=== PATIENT | male | born 1965 ===

== ENCOUNTER 2020-01-05 10:18 | Inpatient (IN) ==
[2020-01-05] MEDS ORDERED: DEXTROSE 50% 25 GM/50 ML VIAL IV PRN ×2 (13:31→15:26)
[2020-01-05] MEDS ORDERED: ONDANSETRON 4 MG/2 ML VIAL IV PRN (13:31)
[2020-01-05] MEDS ORDERED: GLUCAGON 1 MG VIAL IM PRN (13:31)
[2020-01-05] MEDS ORDERED: POTASSIUM CHLORIDE 20 MEQ TABLET PO PRN (13:37)
[2020-01-05] MEDS ORDERED: MAGNESIUM SULF RIDER 2 GM in PREMIX 1 EACH IV PRN (13:37)
[2020-01-05] MEDS ORDERED: MAGNESIUM SULF RIDER 4 GM in PREMIX 1 EACH IV PRN (13:37)
[2020-01-05] MEDS ORDERED: NITROGLYCERIN SL 0.4 MG TABLET SL PRN (13:40)
[2020-01-05 13:51] LABS: Basophils % 0.2 % (0.0-0.8); Hematocrit 43.4 VOL% (42.0-52.0); Hemoglobin 14.3 GM/DL (14.0-18.0); Immature Granulocytes % 0.4 %; Immature Granulocytes Absolute 0.02 #; Lymphocytes # 0.2 10*3/uL (1.4-4.0); Lymphocytes % 4.2 % (21.2-54.2); Mean Corpuscular HGB Conc 32.9 GM/DL (32-36); Mean Corpuscular Volume 95.4 FL (87-102); Mean Platelet Volume 9.4 FL (9.6-12.0); Monocytes % 1.6 % (1.7-12.7); Neutrophils % 93.6 % (38.7-73.9); Platelet Count 236 T/CUMM (130-400); Red Blood Count 4.55 MC/CUMM (3.8-5.5); Red Cell Distribution Width 16.2 % (9.3-17.3); White Blood Count 5.7 T/CUMM (4-12)
[2020-01-05 14:23] LABS: Bilirubin,Total 1.8 MG/DL (0.2-1.0); Calcium 8.8 MG/DL (8.5-10.1); Osmolality,Calculated 284.5 MOS/KG (273-304); Total Protein 6.6 G/DL (6.4-8.3)
[2020-01-05 14:29] LABS: Lymphocytes 4 % (20-55); Segmented Neutrophils 95 % (50-85); Total Cells Counted 100
[2020-01-05 14:30] LABS: Macrocytosis Slight
[2020-01-05 14:32] LABS: Anisocytosis 1+
[2020-01-05 14:33] LABS: Platelet Estimate Normal; Polychromasia Slight
[2020-01-05] MEDS: INSULIN LISPRO 100 UNIT/ML SUBCUT SCH ×2 (16:45→21:10)
[2020-01-05] MEDS: FUROSEMIDE 40 MG/4 ML VIAL IV SCH (16:56)
[2020-01-05 17:35] LABS: Bilirubin,Urine Negative (Negative); Blood, Urine Negative (Negative); Glucose,Urine (UA) Negative (Negative); Ketones,Urine Negative (Negative); Mucus,Urine Occasional /LPF (Occasional); Nitrite,Urine Negative (Negative); Protein,Urine 100 MG/DL; RBC,Urine 1 /HPF (0-4); Squamous Epithelial Cell,Urine Occasional /HPF (0-10); Urine Appearance CLEAR (Clear); Urine Color Amber (Yellow); Urine Specific Gravity 1.028 (1.001-1.035); WBC,Urine 1 /HPF (0-6)
[2020-01-05] MEDS: ENOXAPARIN 40 MG/0.4 ML SYRINGE SUBCUT SCH (21:10)
[2020-01-06 05:46] LABS: Basophils % 0.2 % (0.0-0.8); Hematocrit 44.4 VOL% (42.0-52.0); Hemoglobin 14.4 GM/DL (14.0-18.0); Immature Granulocytes % 0.3 %; Immature Granulocytes Absolute 0.03 #; Lymphocytes # 0.7 10*3/uL (1.4-4.0); Lymphocytes % 7.3 % (21.2-54.2); Mean Corpuscular HGB Conc 32.4 GM/DL (32-36); Mean Corpuscular Volume 94.9 FL (87-102); Mean Platelet Volume 10.1 FL (9.6-12.0); Monocytes % 3.9 % (1.7-12.7); Neutrophils % 88.3 % (38.7-73.9); Platelet Count 242 T/CUMM (130-400); Red Blood Count 4.68 MC/CUMM (3.8-5.5); Red Cell Distribution Width 15.9 % (9.3-17.3); White Blood Count 9.6 T/CUMM (4-12)
[2020-01-06 06:13] LABS: Albumin 2.9 G/DL (3.4-5.0); Bilirubin,Total 1.3 MG/DL (0.2-1.0); Calcium 8.9 MG/DL (8.5-10.1); Osmolality,Calculated 285.3 MOS/KG (273-304); Risk Ratio 4.25; Thyroid Stimulating Hormone 4.01 uIU/ml (0.358-3.74); Total Protein 6.2 G/DL (6.4-8.3); VLDL CHOLESTEROL 12.8 MG/DL
[2020-01-06] MEDS: INSULIN LISPRO 100 UNIT/ML SUBCUT SCH ×4 (08:04→20:09)
[2020-01-06] MEDS: FUROSEMIDE 40 MG/4 ML VIAL IV SCH ×2 (08:53→16:33)
[2020-01-06] MEDS: PANTOPRAZOLE 40 MG TABLET PO SCH (08:53)
[2020-01-06] MEDS ORDERED: VALSARTAN 80 MG TABLET PO SCH (09:00)
[2020-01-06 09:10] LABS: Free T4 (Free Thyroxine) 0.96 NG/DL (0.76-1.46)
[2020-01-06] MEDS ORDERED: diphenhydrAMINE CAP 25 MG CAPSULE PO ONE (10:35)
[2020-01-06] MEDS ORDERED: POTASSIUM CHLORIDE RIDER 10 MEQ in PREMIX 1 EACH IV PRN (10:35)
[2020-01-06] MEDS ORDERED: DIAZEPAM 5 MG TABLET PO ONE (10:35)
[2020-01-06] MEDS ORDERED: HEPARIN/NACL 0.9% 2 UNITS/ML 1,500 ML IV ONE (10:37)
[2020-01-06] MEDS ORDERED: LIDOCAINE 1% 20 ML VIAL ONE (10:37)
[2020-01-06] MEDS: ASPIRIN EC 81 MG TABLET PO SCH (10:54)
[2020-01-06] MEDS ORDERED: SODIUM CHLORIDE 0.45% 1,000 ML IV SCH (11:00)
[2020-01-06] MEDS ORDERED: MIDAZOLAM 2 MG/2 ML VIAL ONE (11:08)
[2020-01-06] MEDS ORDERED: fentaNYL 100 MCG/2 ML VIAL ONE (11:08)
[2020-01-06] MEDS: ENOXAPARIN 40 MG/0.4 ML SYRINGE SUBCUT SCH (20:59)
[2020-01-07 05:18] LABS: Basophils # 0.1 10*3/uL (0.0-0.2); Basophils % 0.6 % (0.0-0.8); Eosinophils % 0.1 % (0.00-10.9); Immature Granulocytes % 0.4 %; Immature Granulocytes Absolute 0.03 #; Lymphocytes # 1.9 10*3/uL (1.4-4.0); Lymphocytes % 23.1 % (21.2-54.2); Mean Corpuscular HGB Conc 32.6 GM/DL (32-36); Mean Corpuscular Volume 95.2 FL (87-102); Mean Platelet Volume 9.5 FL (9.6-12.0); Monocytes % 6.3 % (1.7-12.7); Neutrophils % 69.5 % (38.7-73.9); Platelet Count 253 T/CUMM (130-400); Red Blood Count 4.83 MC/CUMM (3.8-5.5); Red Cell Distribution Width 16.1 % (9.3-17.3); White Blood Count 8.3 T/CUMM (4-12)
[2020-01-07 05:34] LABS: Calcium 9.1 MG/DL (8.5-10.1); Osmolality,Calculated 278.8 MOS/KG (273-304)
[2020-01-07 05:40] LABS: Albumin 2.9 G/DL (3.4-5.0); Bilirubin,Total 1.5 MG/DL (0.2-1.0); Calcium 9.2 MG/DL (8.5-10.1); Osmolality,Calculated 279.7 MOS/KG (273-304); Total Protein 6.2 G/DL (6.4-8.3)
[2020-01-07] MEDS: INSULIN LISPRO 100 UNIT/ML SUBCUT SCH ×4 (08:30→20:50)
[2020-01-07] MEDS: OLMESARTAN 5 MG TABLET PO SCH (09:03)
[2020-01-07] MEDS: FUROSEMIDE 40 MG/4 ML VIAL IV SCH ×2 (09:03→15:37)
[2020-01-07] MEDS: ASPIRIN EC 81 MG TABLET PO SCH (09:03)
[2020-01-07] MEDS: PANTOPRAZOLE 40 MG TABLET PO SCH (09:04)
[2020-01-07] MEDS ORDERED: DEXTROSE 50% 25 GM/50 ML VIAL IV PRN (09:23)
[2020-01-07] MEDS ORDERED: GLUCAGON 1 MG VIAL IM PRN (09:23)
[2020-01-07] MEDS ORDERED: SODIUM CHLORIDE 0.9% 1,000 ML IV SCH ×2 (09:30→12:30)
[2020-01-07 14:18] LABS: ABG Base Excess 4.2 MMOL/L (-2.5-2.5); ABG HCO3 28.2 MMOL/L (20-26); ABG Oxygen Saturation 98.7 % (95-100); ABG PCO2 37.2 MM HG (35-48); ABG TCO2 23.5 MMOL/L (23-27)
[2020-01-07] MEDS ORDERED: CHLORHEXIDINE 4% SOLN 118 ML BOTTLE TOP SCH (15:00)
[2020-01-07] MEDS: CHLORHEXIDINE 4% SOLN 118 ML BOTTLE TOP SCH ×2 (15:37→20:50)
[2020-01-07] MEDS: CHLORHEXIDINE 0.12% ORAL RINSE 60 ML BOTTLE SWISH/SPIT SCH (20:50)
[2020-01-07] MEDS ORDERED: CHLORHEXIDINE 0.12% ORAL RINSE 60 ML BOTTLE SWISH/SPIT SCH (21:00)
[2020-01-08] MEDS ORDERED: CEFUROXIME INJ 1,500 MG in SYRINGE 1 EACH IV ONE (04:00)
[2020-01-08] MEDS ORDERED: VANCOMYCIN 1,000 MG VIAL ONE (04:21)
[2020-01-08 05:43] LABS: Basophils % 0.6 % (0.0-0.8); Eosinophils # 0.1 10*3/uL (0.0-0.87); Eosinophils % 0.8 % (0.00-10.9); Hematocrit 45.6 VOL% (42.0-52.0); Hemoglobin 14.9 GM/DL (14.0-18.0); Immature Granulocytes % 0.4 %; Immature Granulocytes Absolute 0.03 #; Lymphocytes # 1.3 10*3/uL (1.4-4.0); Lymphocytes % 18.3 % (21.2-54.2); Mean Corpuscular HGB Conc 32.7 GM/DL (32-36); Mean Corpuscular Volume 95.6 FL (87-102); Mean Platelet Volume 9.7 FL (9.6-12.0); Neutrophils % 73.9 % (38.7-73.9); Platelet Count 258 T/CUMM (130-400); Red Blood Count 4.77 MC/CUMM (3.8-5.5); Red Cell Distribution Width 15.9 % (9.3-17.3); White Blood Count 7.1 T/CUMM (4-12)
[2020-01-08] MEDS ORDERED: SUFentanil 250 MCG/5 ML AMP ONE (05:56)
[2020-01-08] MEDS ORDERED: MIDAZOLAM 10 MG/2 ML VIAL ONE (05:56)
[2020-01-08 06:13] LABS: Albumin 2.8 G/DL (3.4-5.0); Calcium 8.5 MG/DL (8.5-10.1); Osmolality,Calculated 284.3 MOS/KG (273-304); Total Protein 6.2 G/DL (6.4-8.3)
[2020-01-08 07:39] LABS: ABG Base Excess -1.2 MMOL/L (-2.5-2.5); ABG HCO3 25.7 MMOL/L (20-26); ABG Oxygen Saturation 99.3 % (95-100); ABG PCO2 51.4 MM HG (35-48); ABG PH 7.317 (7.35-7.45); ABG PO2 247.9 MM HG (80-95); ABG TCO2 27.3 MMOL/L (23-27); Glucose Heart Surgery 112 MG/DL (74-106); Hemoglobin Heart Surgery 14.7 G/DL (14.0-18.0); Ionized Calcium Arterial 1.17 MMOL/L (1.21-1.46); PCO2 Patient Temp Arterial 51.4 MMHG; PH Patient Temp Arterial 7.317; PO2 Patient Temp Arterial 247.9 MM HG; Patient Temperature 37 CELCIUS; Potassium Heart/CVR 3.7 MMOL/L (3.5-5.1); Sodium Heart/CVR 138 MMOL/L (135-145)
[2020-01-08 07:58] LABS: Bilirubin,Urine Negative (Negative); Blood, Urine NEGATIVE (Negative); Glucose,Urine (UA) Negative (Negative); Ketones,Urine Negative (Negative); Mucus,Urine Occasional /LPF (Occasional); Nitrite,Urine Negative (Negative); Protein,Urine Negative; RBC,Urine 1 /HPF (0-4); Urine Appearance Clear (Clear); Urine Color Yellow (Yellow); WBC,Urine <1 /HPF (0-6)
[2020-01-08 08:27] LABS: Hematocrit Heart Surgery 31.4 PERCENT (42-52); Hemoglobin Heart Surgery 10.1 G/DL (14.0-18.0); PH Patient Temp Venous 7.451; PO2 Patient Temp Venous 39.4 MM HG; Potassium Heart/CVR 3.7 MMOL/L (3.5-5.1); VBG Base Excess 3.8 MEQ/L (0-4); VBG HCO3 27.4 MEQ/L (24-28); VBG Oxygen Saturation 76.7 %; VBG PCO2 44.1 MMHG (41-51); VBG PH 7.422; VBG PO2 45.3 MMHG (17-40)
[2020-01-08] MEDS ORDERED: NITROGLYCERIN DRIP 50 MG/250 ML BOTTLE IV ONE (08:32)
[2020-01-08] MEDS ORDERED: HEPARIN/NACL 0.9% 2 UNITS/ML 500 ML IV ONE (08:32)
[2020-01-08] MEDS ORDERED: PHENYLEPHRINE DRIP 20 MG/250 ML PREMIX IV ONE (08:32)
[2020-01-08 09:01] LABS: Hematocrit Heart Surgery 31.1 PERCENT (42-52); Hemoglobin Heart Surgery 10.1 G/DL (14.0-18.0); PCO2 Patient Temp Venous 33.5 MM HG; PH Patient Temp Venous 7.53; PO2 Patient Temp Venous 40.7 MM HG; Potassium Heart/CVR 3.6 MMOL/L (3.5-5.1); VBG Base Excess 5.5 MEQ/L (0-4); VBG HCO3 29.1 MEQ/L (24-28); VBG Oxygen Saturation 84.4 %; VBG PCO2 38.8 MMHG (41-51); VBG PH 7.485
[2020-01-08 09:32] LABS: Hemoglobin Heart Surgery 10.4 G/DL (14.0-18.0); PCO2 Patient Temp Venous 37.3 MM HG; PH Patient Temp Venous 7.506; PO2 Patient Temp Venous 43.4 MM HG; Potassium Heart/CVR 3.9 MMOL/L (3.5-5.1); VBG Base Excess 6.1 MEQ/L (0-4); VBG HCO3 29.6 MEQ/L (24-28); VBG Oxygen Saturation 78.1 %; VBG PCO2 37.3 MMHG (41-51); VBG PH 7.506; VBG PO2 43.4 MMHG (17-40)
[2020-01-08] MEDS ORDERED: PHENYLEPHRINE DRIP 40 MG/250 ML PREMIX IV ONE (09:33)
[2020-01-08] MEDS ORDERED: ALBUMIN 5% 12.5 GM/250 ML VIAL IV ONE (09:34)
[2020-01-08] MEDS ORDERED: POTASSIUM CHLORIDE RIDER 100 ML IV ONE ×2 (09:34→11:47)
[2020-01-08] MEDS ORDERED: MANNITOL 100 GM/500 ML BAG IV ONE (10:05)
[2020-01-08] MEDS ORDERED: LIDOCAINE 2% 5 ML VIAL ONE ×2 (10:05→11:59)
[2020-01-08] MEDS ORDERED: DEXTROSE 5% KCL 20 MEQ 20 MEQ/1,000 ML BAG IV ONE (10:05)
[2020-01-08] MEDS ORDERED: PROTAMINE SULFATE 50 MG/5 ML VIAL IV ONE (10:06)
[2020-01-08] MEDS ORDERED: SODIUM BICARBONATE 50 MEQ/50 ML VIAL IV ONE (10:06)
[2020-01-08] MEDS ORDERED: PROTAMINE SULFATE 250 MG/25 ML VIAL IV ONE (10:06)
[2020-01-08] MEDS ORDERED: ALBUMIN 25% 25 GM/100 ML VIAL IV ONE (10:06)
[2020-01-08] MEDS ORDERED: FUROSEMIDE 20 MG/2 ML VIAL ONE (10:06)
[2020-01-08] MEDS ORDERED: HEPARIN 10,000 UNIT/10 ML VIAL ONE (10:06)
[2020-01-08] MEDS ORDERED: MAGNESIUM SULFATE 5 GM/10 ML VIAL IV ONE (10:06)
[2020-01-08] MEDS ORDERED: methylPREDNISolone SOD SUC 1,000 MG/8 ML VIAL ONE (10:06)
[2020-01-08 10:23] LABS: ABG Base Excess 3.9 MMOL/L (-2.5-2.5); ABG HCO3 27.9 MMOL/L (20-26); ABG Oxygen Saturation 98.5 % (95-100); ABG PCO2 44.8 MM HG (35-48); ABG PH 7.419 (7.35-7.45); ABG TCO2 25.9 MMOL/L (23-27); Glucose Heart Surgery 144 MG/DL (74-106); Hematocrit Heart Surgery 34.5 PERCENT (42-52); Hemoglobin Heart Surgery 11.2 G/DL (14.0-18.0); PCO2 Patient Temp Arterial 44.8 MMHG; PH Patient Temp Arterial 7.419; Patient Temperature 37 CELCIUS; Potassium Heart/CVR 3.4 MMOL/L (3.5-5.1); Sodium Heart/CVR 139 MMOL/L (135-145)
[2020-01-08] MEDS: LACTATED RINGERS 1,000 ML IV PRN ×5 (11:00→19:00)
[2020-01-08] MEDS ORDERED: MIDAZOLAM 2 MG/2 ML VIAL ONE (11:39)
[2020-01-08] MEDS ORDERED: MORPHINE 4 MG/1 ML VIAL IV PRN (11:41)
[2020-01-08] MEDS ORDERED: CHLORHEXIDINE 4% SOLN 118 ML BOTTLE TOP PRN (11:41)
[2020-01-08] MEDS ORDERED: NITROPRUSSIDE 100 MG in DEXTROSE 5% 250 ML IV PRN (11:41)
[2020-01-08] MEDS ORDERED: CALCIUM CHLORIDE 1,000 MG/10 ML SYRINGE IV PRN (11:41)
[2020-01-08] MEDS ORDERED: POTASSIUM CHLORIDE RIDER 10 MEQ in PREMIX 1 EACH IV PRN (11:41)
[2020-01-08] MEDS ORDERED: MIDAZOLAM 10 MG/2 ML VIAL IV PRN (11:41)
[2020-01-08] MEDS ORDERED: PHENYLEPHRINE DRIP 40 MG/250 ML PREMIX IV PRN (11:41)
[2020-01-08] MEDS ORDERED: MAGNESIUM SULF RIDER 4 GM in PREMIX 1 EACH IV PRN (11:41)
[2020-01-08] MEDS ORDERED: VECURONIUM 10 MG VIAL IV PRN ×2 (11:41)
[2020-01-08] MEDS ORDERED: INSULIN REGULAR 100 UNIT/ML IV PRN (11:41)
[2020-01-08] MEDS ORDERED: LACTATED RINGERS 250 ML IV PRN (11:41)
[2020-01-08] MEDS ORDERED: INSULIN REGULAR 100 UNIT/ML IV ONE (11:41)
[2020-01-08] MEDS ORDERED: ONDANSETRON 4 MG/2 ML VIAL IV PRN (11:41)
[2020-01-08] MEDS ORDERED: MIDAZOLAM 2 MG/2 ML VIAL IV PRN (11:41)
[2020-01-08] MEDS ORDERED: MORPHINE 10 MG/1 ML VIAL IV PRN (11:41)
[2020-01-08] MEDS ORDERED: DEXTROSE 50% 25 GM/50 ML VIAL IV PRN ×2 (11:41)
[2020-01-08] MEDS ORDERED: MAGNESIUM SULF RIDER 2 GM in PREMIX 1 EACH IV PRN (11:41)
[2020-01-08] MEDS ORDERED: ACETAMINOPHEN 650 MG SUPP RECTAL PRN (11:41)
[2020-01-08 11:44] LABS: ABG Base Excess 4.5 MMOL/L (-2.5-2.5); ABG HCO3 28.4 MMOL/L (20-26); ABG Oxygen Saturation 97.4 % (95-100); ABG PCO2 47.3 MM HG (35-48); ABG PH 7.411 (7.35-7.45); ABG TCO2 26.3 MMOL/L (23-27); Glucose Heart Surgery 137 MG/DL (74-106); Hematocrit Heart Surgery 39.3 PERCENT (42-52); Hemoglobin Heart Surgery 12.8 G/DL (14.0-18.0); Potassium Heart/CVR 3.4 MMOL/L (3.5-5.1)
[2020-01-08 11:49] LABS: Basophils % 0.3 % (0.0-0.8); Eosinophils % 0.1 % (0.00-10.9); Hematocrit 38.1 VOL% (42.0-52.0); Lymphocytes # 0.4 10*3/uL (1.4-4.0); Lymphocytes % 3.5 % (21.2-54.2); Mean Corpuscular HGB Conc 32.8 GM/DL (32-36); Mean Corpuscular Volume 94.8 FL (87-102); Monocytes % 3.9 % (1.7-12.7); Neutrophils % 91.2 % (38.7-73.9); Red Blood Count 4.02 MC/CUMM (3.8-5.5); Red Cell Distribution Width 15.7 % (9.3-17.3); White Blood Count 10.5 T/CUMM (4-12)
[2020-01-08 11:56] LABS: Hemoglobin 12.5 GM/DL (14.0-18.0); Platelet Count 193 T/CUMM (130-400)
[2020-01-08 11:57] LABS: INR 1.3; PT Patient Result 13.4 SECS (9.8-11.9); Partial Thromboplastin Time 31.7 SECS (23.9-33.8)
[2020-01-08] MEDS ORDERED: AMINOCAPROIC ACID 5,000 MG/20 ML VIAL ONE (11:59)
[2020-01-08] MEDS ORDERED: SODIUM CHLORIDE 0.9% 1,000 ML IV ONE (11:59)
[2020-01-08] MEDS ORDERED: VECURONIUM 10 MG VIAL IV ONE (11:59)
[2020-01-08] MEDS ORDERED: SODIUM CHLORIDE 0.9% 300 ML IV ONE (11:59)
[2020-01-08] MEDS ORDERED: CALCIUM CHLORIDE 1,000 MG/10 ML VIAL IV ONE (11:59)
[2020-01-08] MEDS ORDERED: LACTATED RINGERS 1,000 ML IV ONE (11:59)
[2020-01-08] MEDS ORDERED: ETOMIDATE 40 MG/20 ML VIAL IV ONE (11:59)
[2020-01-08] MEDS ORDERED: SEVOFLURANE 1 UNIT/15 MINUTE INH ONE (11:59)
[2020-01-08] MEDS: ALBUMIN 5% 12.5 GM in PREMIX 1 EACH IV PRN ×6 (12:00→23:09)
[2020-01-08] MEDS ORDERED: PHENYLEPHRINE 1 MG/10 ML SYRINGE IV ONE (12:00)
[2020-01-08] MEDS ORDERED: INSULIN REGULAR DRIP 100 ML IV SCH (12:00)
[2020-01-08] MEDS: POTASSIUM CHLORIDE RIDER 20 MEQ in PREMIX 1 EACH IV PRN ×2 (12:00→12:30)
[2020-01-08] MEDS ORDERED: SODIUM CHLORIDE 0.45% 1,000 ML IV SCH ×2 (12:00)
[2020-01-08 12:06] LABS: Troponin I 2.22 NG/ML (0.00-0.045)
[2020-01-08 12:08] LABS: Band Neutrophils 7 % (0-10); Lymphocytes 3 % (20-55); Segmented Neutrophils 86 % (50-85); Total Cells Counted 100
[2020-01-08 12:09] LABS: Anisocytosis 1+; Macrocytosis 1+; Platelet Estimate Normal
[2020-01-08 12:11] LABS: Albumin 2.7 G/DL (3.4-5.0); Bilirubin,Total 1.7 MG/DL (0.2-1.0); Calcium 8.4 MG/DL (8.5-10.1); Osmolality,Calculated 291.8 MOS/KG (273-304); Total Protein 5.3 G/DL (6.4-8.3)
[2020-01-08 15:08] LABS: ABG Base Excess 3.9 MMOL/L (-2.5-2.5); ABG HCO3 27.9 MMOL/L (20-26); ABG Oxygen Saturation 98.8 % (95-100); ABG PCO2 49.3 MM HG (35-48); ABG PH 7.389 (7.35-7.45); ABG TCO2 26.6 MMOL/L (23-27); Glucose Heart Surgery 149 MG/DL (74-106); Hemoglobin Heart Surgery 11.4 G/DL (14.0-18.0); Potassium Heart/CVR 4.2 MMOL/L (3.5-5.1)
[2020-01-08] MEDS: PANTOPRAZOLE 40 MG TABLET PO SCH (16:09)
[2020-01-08] MEDS: CHLORHEXIDINE 0.12% ORAL RINSE 60 ML BOTTLE SWISH/SPIT SCH (16:09)
[2020-01-08] MEDS: INSULIN LISPRO 100 UNIT/ML SUBCUT SCH (16:10)
[2020-01-08] MEDS: CHLORHEXIDINE 4% SOLN 118 ML BOTTLE TOP SCH (16:10)
[2020-01-08] MEDS: ASPIRIN EC 81 MG TABLET PO SCH (16:10)
[2020-01-08] MEDS: OLMESARTAN 5 MG TABLET PO SCH (16:10)
[2020-01-08] MEDS: FUROSEMIDE 40 MG/4 ML VIAL IV SCH (16:10)
[2020-01-08 17:51] LABS: ABG Base Excess 3.4 MMOL/L (-2.5-2.5); ABG HCO3 27.4 MMOL/L (20-26); ABG Oxygen Saturation 96.6 % (95-100); ABG PCO2 45.6 MM HG (35-48); ABG PH 7.407 (7.35-7.45); ABG PO2 87.6 MM HG (80-95); ABG TCO2 25.7 MMOL/L (23-27); Glucose Heart Surgery 161 MG/DL (74-106); Hematocrit Heart Surgery 34.7 PERCENT (42-52); Hemoglobin Heart Surgery 11.3 G/DL (14.0-18.0); Potassium Heart/CVR 4.3 MMOL/L (3.5-5.1)
[2020-01-08] MEDS ORDERED: CEFUROXIME INJ 1,500 MG in SYRINGE 1 EACH IV SCH (19:30)
[2020-01-08 19:52] LABS: ABG Base Excess 2.2 MMOL/L (-2.5-2.5); ABG HCO3 26.3 MMOL/L (20-26); ABG Oxygen Saturation 96.6 % (95-100); ABG PCO2 46.3 MM HG (35-48); ABG PH 7.386 (7.35-7.45); ABG PO2 91.9 MM HG (80-95); ABG TCO2 24.9 MMOL/L (23-27); Glucose Heart Surgery 168 MG/DL (74-106); Hematocrit Heart Surgery 34.1 PERCENT (42-52); Potassium Heart/CVR 4.2 MMOL/L (3.5-5.1)
[2020-01-08] MEDS: INSULIN REGULAR 100 UNIT/ML SUBCUT SCH ×2 (20:06→23:57)
[2020-01-08] MEDS ORDERED: CHLORHEXIDINE 0.12% ORAL RINSE 60 ML BOTTLE SWISH/SPIT SCH (21:00)
[2020-01-08 21:11] LABS: ABG Base Excess 1.1 MMOL/L (-2.5-2.5); ABG HCO3 24.9 MMOL/L (20-26); ABG Oxygen Saturation 96.7 % (95-100); ABG PCO2 36.6 MM HG (35-48); ABG PO2 93.7 MM HG (80-95); Glucose Heart Surgery 151 MG/DL (74-106); Hemoglobin Heart Surgery 11.6 G/DL (14.0-18.0)
[2020-01-08 22:10] LABS: CKMB % 8.4 %
[2020-01-08 22:16] LABS: Troponin I 3.15 NG/ML (0.00-0.045)
[2020-01-08 23:49] LABS: ABG Base Excess 2.8 MMOL/L (-2.5-2.5); ABG HCO3 26.9 MMOL/L (20-26); ABG Oxygen Saturation 97.9 % (95-100); ABG PCO2 44.9 MM HG (35-48); ABG PH 7.403 (7.35-7.45); ABG TCO2 25.2 MMOL/L (23-27); Glucose Heart Surgery 151 MG/DL (74-106); Hematocrit Heart Surgery 33.5 PERCENT (42-52); Hemoglobin Heart Surgery 10.9 G/DL (14.0-18.0)
[2020-01-09] MEDS ORDERED: FUROSEMIDE 40 MG/4 ML VIAL IV ONE (00:46)
[2020-01-09 01:52] LABS: ABG Base Excess 3.4 MMOL/L (-2.5-2.5); ABG HCO3 27.4 MMOL/L (20-26); ABG Oxygen Saturation 98.6 % (95-100); ABG PCO2 42.6 MM HG (35-48); ABG PH 7.428 (7.35-7.45); Glucose Heart Surgery 166 MG/DL (74-106); Hematocrit Heart Surgery 35.6 PERCENT (42-52); Hemoglobin Heart Surgery 11.6 G/DL (14.0-18.0)
[2020-01-09] MEDS ORDERED: NITROPRUSSIDE 50 MG/2 ML VIAL ONE (03:40)
[2020-01-09 03:41] LABS: ABG HCO3 26.6 MMOL/L (20-26); ABG Oxygen Saturation 97.8 % (95-100); ABG PCO2 41.4 MM HG (35-48); ABG PH 7.425 (7.35-7.45); ABG PO2 115.5 MM HG (80-95); ABG TCO2 27.8 MMOL/L (23-27); Glucose Heart Surgery 153 MG/DL (74-106); Hemoglobin Heart Surgery 11.9 G/DL (14.0-18.0); Potassium Heart/CVR 3.8 MMOL/L (3.5-5.1)
[2020-01-09] MEDS: INSULIN REGULAR 100 UNIT/ML SUBCUT SCH ×5 (03:48→21:11)
[2020-01-09 04:01] LABS: Hematocrit 33.9 VOL% (42.0-52.0); Hemoglobin 11.2 GM/DL (14.0-18.0); Immature Granulocytes % 0.3 %; Immature Granulocytes Absolute 0.02 #; Lymphocytes # 0.2 10*3/uL (1.4-4.0); Lymphocytes % 3.2 % (21.2-54.2); Mean Platelet Volume 10.4 FL (9.6-12.0); Monocytes % 3.8 % (1.7-12.7); Neutrophils % 92.7 % (38.7-73.9); Platelet Count 150 T/CUMM (130-400); Red Blood Count 3.57 MC/CUMM (3.8-5.5); Red Cell Distribution Width 15.7 % (9.3-17.3); White Blood Count 7.3 T/CUMM (4-12)
[2020-01-09 04:16] LABS: Albumin 3.5 G/DL (3.4-5.0); Bilirubin,Direct 0.45 MG/DL (0.0-0.20); Bilirubin,Total 1.2 MG/DL (0.2-1.0); Calcium 8.4 MG/DL (8.5-10.1); Osmolality,Calculated 292.7 MOS/KG (273-304); Total Protein 5.9 G/DL (6.4-8.3)
[2020-01-09 04:56] LABS: ABG Base Excess 4.2 MMOL/L (-2.5-2.5); ABG HCO3 28.1 MMOL/L (20-26); ABG Oxygen Saturation 97.6 % (95-100); ABG PCO2 46.3 MM HG (35-48); ABG PH 7.412 (7.35-7.45); ABG PO2 96.5 MM HG (80-95); ABG TCO2 26.3 MMOL/L (23-27); Glucose Heart Surgery 167 MG/DL (74-106); Hematocrit Heart Surgery 34.8 PERCENT (42-52); Hemoglobin Heart Surgery 11.3 G/DL (14.0-18.0); Potassium Heart/CVR 3.8 MMOL/L (3.5-5.1)
[2020-01-09 05:15] LABS: CKMB % 8.4 %
[2020-01-09 05:33] LABS: Acanthocytes 1+; Ovalocytes 1+; Platelet Estimate Adequate
[2020-01-09 05:42] LABS: Troponin I 3.45 NG/ML (0.00-0.045)
[2020-01-09 06:16] LABS: ABG Base Excess 3.1 MMOL/L (-2.5-2.5); ABG HCO3 27.8 MMOL/L (20-26); ABG Oxygen Saturation 96.9 % (95-100); ABG PCO2 42.9 MM HG (35-48); ABG PH 7.429 (7.35-7.45); ABG PO2 100.5 MM HG (80-95); ABG TCO2 29.1 MMOL/L (23-27); Glucose Heart Surgery 167 MG/DL (74-106); Hemoglobin Heart Surgery 11.5 G/DL (14.0-18.0); Potassium Heart/CVR 3.7 MMOL/L (3.5-5.1)
[2020-01-09] MEDS: carvediloL 6.25 MG TABLET PO SCH ×3 (06:23→16:58)
[2020-01-09] MEDS ORDERED: oxyCODONE/ACETAMINOPHEN 5-325 MG TABLET PO PRN (06:43)
[2020-01-09] MEDS ORDERED: MAGNESIUM SULF RIDER 4 GM in PREMIX 1 EACH IV PRN (06:43)
[2020-01-09] MEDS ORDERED: MAGNESIUM SULF RIDER 2 GM in PREMIX 1 EACH IV PRN (06:43)
[2020-01-09] MEDS ORDERED: ONDANSETRON 4 MG/2 ML VIAL IV PRN (06:43)
[2020-01-09] MEDS ORDERED: GLUCAGON 1 MG VIAL IM PRN ×2 (06:43)
[2020-01-09] MEDS ORDERED: MAGNESIUM HYDROXIDE SUSP 30 ML UDCUP PO PRN (06:43)
[2020-01-09] MEDS ORDERED: ALUMINUM/MAGNES/SIMETH MAX STR 30 ML UDCUP PO PRN (06:43)
[2020-01-09] MEDS ORDERED: ZALEPLON 5 MG CAPSULE PO PRN (06:43)
[2020-01-09] MEDS ORDERED: ACETAMINOPHEN 325 MG TABLET PO PRN (06:43)
[2020-01-09] MEDS ORDERED: DEXTROSE 50% 25 GM/50 ML VIAL IV PRN ×2 (06:43)
[2020-01-09] MEDS: OLMESARTAN 5 MG TABLET PO SCH (08:20)
[2020-01-09] MEDS: ASPIRIN EC 81 MG TABLET PO SCH (08:21)
[2020-01-09] MEDS: DOCUSATE SODIUM 100 MG CAPSULE PO SCH (08:21)
[2020-01-09] MEDS: KETOROLAC 30 MG/1 ML VIAL IV SCH ×3 (08:22→21:04)
[2020-01-09] MEDS: PANTOPRAZOLE 40 MG TABLET PO SCH (08:22)
[2020-01-09] MEDS: CEFUROXIME INJ 1,500 MG in SYRINGE 1 EACH IV SCH ×2 (08:22→21:05)
[2020-01-09] MEDS: SODIUM CHLOR 0.45% KCL 20 MEQ 20 MEQ/1,000 ML BAG IV SCH (08:23)
[2020-01-09] MEDS: FERROUS SULFATE 325 MG TABLET PO SCH (08:35)
[2020-01-09] MEDS: CHLORHEXIDINE 0.12% ORAL RINSE 60 ML BOTTLE SWISH/SPIT SCH ×2 (09:10→21:10)
[2020-01-09] MEDS ORDERED: NITROPRUSSIDE 100 MG in DEXTROSE 5% 246 ML IV PRN (09:30)
[2020-01-09] MEDS ORDERED: carvediloL 3.125 MG TABLET PO SCH (09:44)
[2020-01-09] MEDS ORDERED: ISOSORBIDE MONONITRATE 30 MG TABLET PO SCH (09:44)
[2020-01-09] MEDS: amLODIPine 5 MG TABLET PO SCH (12:25)
[2020-01-10] MEDS: KETOROLAC 30 MG/1 ML VIAL IV SCH ×4 (03:24→21:35)
[2020-01-10] MEDS ORDERED: FUROSEMIDE 40 MG/4 ML VIAL IV ONE (06:00)
[2020-01-10 06:32] LABS: Hematocrit 35.5 VOL% (42.0-52.0); Hemoglobin 11.5 GM/DL (14.0-18.0); Immature Granulocytes % 0.3 %; Immature Granulocytes Absolute 0.04 #; Lymphocytes # 0.4 10*3/uL (1.4-4.0); Lymphocytes % 2.8 % (21.2-54.2); Mean Corpuscular HGB Conc 32.4 GM/DL (32-36); Mean Corpuscular Volume 96.5 FL (87-102); Mean Platelet Volume 10.6 FL (9.6-12.0); Monocytes % 4.1 % (1.7-12.7); Neutrophils % 92.8 % (38.7-73.9); Platelet Count 159 T/CUMM (130-400); Red Blood Count 3.68 MC/CUMM (3.8-5.5); Red Cell Distribution Width 15.9 % (9.3-17.3)
[2020-01-10 06:52] LABS: Albumin 3.3 G/DL (3.4-5.0); Bilirubin,Direct 0.4 MG/DL (0.0-0.20); Bilirubin,Indirect 0.5 MG/DL (0.0-1.0); Bilirubin,Total 0.9 MG/DL (0.2-1.0); CKMB % 4.2 %; Calcium 8.7 MG/DL (8.5-10.1); Osmolality,Calculated 286.4 MOS/KG (273-304); Total Protein 6.2 G/DL (6.4-8.3)
[2020-01-10 06:56] LABS: Troponin I 1.88 NG/ML (0.00-0.045)
[2020-01-10 07:37] LABS: Lymphocytes 3 % (20-55); Segmented Neutrophils 94 % (50-85); Total Cells Counted 100
[2020-01-10 07:38] LABS: Hypochromasia 1+; Platelet Estimate Normal; Polychromasia 2+
[2020-01-10] MEDS: SODIUM CHLOR 0.45% KCL 20 MEQ 20 MEQ/1,000 ML BAG IV SCH (07:46)
[2020-01-10] MEDS: INSULIN REGULAR 100 UNIT/ML SUBCUT SCH ×4 (07:46→21:34)
[2020-01-10] MEDS: PANTOPRAZOLE 40 MG TABLET PO SCH (09:26)
[2020-01-10] MEDS: DOCUSATE SODIUM 100 MG CAPSULE PO SCH (09:26)
[2020-01-10] MEDS: OLMESARTAN 5 MG TABLET PO SCH (09:26)
[2020-01-10] MEDS: amLODIPine 5 MG TABLET PO SCH (09:26)
[2020-01-10] MEDS: CHLORHEXIDINE 0.12% ORAL RINSE 60 ML BOTTLE SWISH/SPIT SCH ×2 (09:27→21:36)
[2020-01-10] MEDS: carvediloL 6.25 MG TABLET PO SCH ×3 (09:27→16:07)
[2020-01-10] MEDS: ASPIRIN EC 81 MG TABLET PO SCH (09:27)
[2020-01-10] MEDS: FERROUS SULFATE 325 MG TABLET PO SCH (09:27)
[2020-01-10] MEDS: FUROSEMIDE 20 MG TABLET PO SCH ×2 (09:27→15:52)
[2020-01-11] MEDS: KETOROLAC 30 MG/1 ML VIAL IV SCH ×4 (05:12→21:17)
[2020-01-11 05:30] LABS: Basophils % 0.1 % (0.0-0.8); Eosinophils % 0.2 % (0.00-10.9); Hematocrit 37.8 VOL% (42.0-52.0); Hemoglobin 12.1 GM/DL (14.0-18.0); Immature Granulocytes % 0.3 %; Immature Granulocytes Absolute 0.03 #; Lymphocytes # 1.5 10*3/uL (1.4-4.0); Lymphocytes % 14.9 % (21.2-54.2); Mean Corpuscular Volume 95.7 FL (87-102); Mean Platelet Volume 10.7 FL (9.6-12.0); Monocytes % 8.7 % (1.7-12.7); Neutrophils % 75.8 % (38.7-73.9); Platelet Count 172 T/CUMM (130-400); Red Blood Count 3.95 MC/CUMM (3.8-5.5); Red Cell Distribution Width 15.9 % (9.3-17.3)
[2020-01-11 05:51] LABS: Alanine Aminotransferase 24 U/L (16-61); Albumin 3.1 G/DL (3.4-5.0); Alkaline Phosphatase 90 U/L (45-117); Aspartate Amino Transferase 25 U/L (0-37); Bilirubin,Indirect 0.4 MG/DL (0.0-1.0); Blood Urea Nitrogen 32 MG/DL (7-18); Calcium 8.9 MG/DL (8.5-10.1); Estimated Glom Filtration Rate 105 ML/MIN; Glucose 89 MG/DL (74-106); Osmolality,Calculated 286.3 MOS/KG (273-304); Total Protein 6.1 G/DL (6.4-8.3)
[2020-01-11] MEDS: INSULIN REGULAR 100 UNIT/ML SUBCUT SCH ×4 (08:31→21:16)
[2020-01-11] MEDS: FERROUS SULFATE 325 MG TABLET PO SCH (09:20)
[2020-01-11] MEDS: carvediloL 6.25 MG TABLET PO SCH ×2 (09:20→16:36)
[2020-01-11] MEDS: amLODIPine 5 MG TABLET PO SCH (09:20)
[2020-01-11] MEDS: ASPIRIN EC 81 MG TABLET PO SCH (09:20)
[2020-01-11] MEDS: PANTOPRAZOLE 40 MG TABLET PO SCH (09:20)
[2020-01-11] MEDS: FUROSEMIDE 20 MG TABLET PO SCH ×2 (09:20→16:43)
[2020-01-11] MEDS: DOCUSATE SODIUM 100 MG CAPSULE PO SCH (09:20)
[2020-01-11] MEDS: CHLORHEXIDINE 0.12% ORAL RINSE 60 ML BOTTLE SWISH/SPIT SCH ×2 (09:21→20:17)
[2020-01-11] MEDS: OLMESARTAN 5 MG TABLET PO SCH (09:21)
[2020-01-12] MEDS: KETOROLAC 30 MG/1 ML VIAL IV SCH (02:35)
[2020-01-12 05:02] LABS: Basophils % 0.1 % (0.0-0.8); Eosinophils % 0.6 % (0.00-10.9); Hematocrit 33.9 VOL% (42.0-52.0); Immature Granulocytes % 0.6 %; Immature Granulocytes Absolute 0.04 #; Lymphocytes # 1.1 10*3/uL (1.4-4.0); Lymphocytes % 15.9 % (21.2-54.2); Mean Corpuscular HGB Conc 32.4 GM/DL (32-36); Mean Platelet Volume 10.1 FL (9.6-12.0); Monocytes % 9.1 % (1.7-12.7); Neutrophils % 73.7 % (38.7-73.9); Platelet Count 156 T/CUMM (130-400); Red Blood Count 3.57 MC/CUMM (3.8-5.5); Red Cell Distribution Width 15.7 % (9.3-17.3); White Blood Count 6.8 T/CUMM (4-12)
[2020-01-12 05:13] LABS: Calcium 7.9 MG/DL (8.5-10.1); Osmolality,Calculated 281.4 MOS/KG (273-304)
[2020-01-12] MEDS: INSULIN REGULAR 100 UNIT/ML SUBCUT SCH ×4 (08:57→21:42)
[2020-01-12] MEDS: DOCUSATE SODIUM 100 MG CAPSULE PO SCH (09:54)
[2020-01-12] MEDS: PANTOPRAZOLE 40 MG TABLET PO SCH (09:54)
[2020-01-12] MEDS: FERROUS SULFATE 325 MG TABLET PO SCH (09:54)
[2020-01-12] MEDS: carvediloL 6.25 MG TABLET PO SCH ×2 (09:54→17:01)
[2020-01-12] MEDS: ASPIRIN EC 81 MG TABLET PO SCH (09:54)
[2020-01-12] MEDS: FUROSEMIDE 20 MG TABLET PO SCH ×2 (09:54→17:01)
[2020-01-12] MEDS: OLMESARTAN 5 MG TABLET PO SCH (09:54)
[2020-01-12] MEDS: CHLORHEXIDINE 0.12% ORAL RINSE 60 ML BOTTLE SWISH/SPIT SCH ×2 (09:55→21:24)
[2020-01-12] MEDS: ALBUTEROL/IPRATROPIUM 3 ML NEB RESP TX SCH ×2 (13:22→18:59)
[2020-01-13] MEDS: ALBUTEROL/IPRATROPIUM 3 ML NEB RESP TX SCH ×2 (00:50→08:30)
[2020-01-13 05:48] LABS: Basophils % 0.1 % (0.0-0.8); Eosinophils # 0.1 10*3/uL (0.0-0.87); Eosinophils % 1.2 % (0.00-10.9); Hematocrit 35.7 VOL% (42.0-52.0); Hemoglobin 11.7 GM/DL (14.0-18.0); Immature Granulocytes % 0.6 %; Immature Granulocytes Absolute 0.04 #; Lymphocytes % 14.3 % (21.2-54.2); Mean Corpuscular HGB Conc 32.8 GM/DL (32-36); Mean Corpuscular Volume 93.2 FL (87-102); Mean Platelet Volume 9.8 FL (9.6-12.0); Neutrophils % 74.8 % (38.7-73.9); Platelet Count 182 T/CUMM (130-400); Red Blood Count 3.83 MC/CUMM (3.8-5.5); Red Cell Distribution Width 15.5 % (9.3-17.3); White Blood Count 6.7 T/CUMM (4-12)
[2020-01-13 06:05] LABS: Calcium 8.6 MG/DL (8.5-10.1); Osmolality,Calculated 274.7 MOS/KG (273-304)
[2020-01-13 06:17] LABS: Alanine Aminotransferase 21 U/L (16-61); Albumin 2.9 G/DL (3.4-5.0); Alkaline Phosphatase 98 U/L (45-117); Aspartate Amino Transferase 18 U/L (0-37); Bilirubin,Indirect 1.9 MG/DL (0.0-1.0); Blood Urea Nitrogen 15 MG/DL (7-18); Calcium 8.5 MG/DL (8.5-10.1); Estimated Glom Filtration Rate 133 ML/MIN; Glucose 87 MG/DL (74-106); Osmolality,Calculated 278.4 MOS/KG (273-304); Total Protein 5.9 G/DL (6.4-8.3)
[2020-01-13 06:18] LABS: Troponin I 0.789 NG/ML (0.00-0.045)
[2020-01-13 06:19] LABS: Hypochromasia 1+; Ovalocytes Slight; Platelet Estimate Adequate
[2020-01-13] MEDS: INSULIN REGULAR 100 UNIT/ML SUBCUT SCH ×2 (08:11→11:30)
[2020-01-13] MEDS: FUROSEMIDE 20 MG TABLET PO SCH (08:25)
[2020-01-13] MEDS: ASPIRIN EC 81 MG TABLET PO SCH (08:25)
[2020-01-13] MEDS: carvediloL 6.25 MG TABLET PO SCH (08:25)
[2020-01-13] MEDS: DOCUSATE SODIUM 100 MG CAPSULE PO SCH (08:25)
[2020-01-13] MEDS: OLMESARTAN 5 MG TABLET PO SCH (08:26)
[2020-01-13] MEDS: POTASSIUM CHLORIDE 20 MEQ TABLET PO PRN ×2 (08:30→09:34)
[2020-01-13] MEDS: FERROUS SULFATE 325 MG TABLET PO SCH (08:30)
[2020-01-13] MEDS: PANTOPRAZOLE 40 MG TABLET PO SCH (08:30)
[2020-01-13] MEDS: CHLORHEXIDINE 0.12% ORAL RINSE 60 ML BOTTLE SWISH/SPIT SCH (08:33)
[2020-01-13 11:49] VITALS: BP 115/77
== END 2020-01-13 15:15 | disposition home health service (06) | DRG 216 ==
LOC: N.TELES → OBSVTOIN 12:21 → SUATTDRO 12:21 → N.CVR 01-08 10:41 → N.TELES 01-09 13:12
PROVIDERS: ADMIT Internal Medicine